=== PATIENT | female | born 2000 | race Caucasian/White ===

== ENCOUNTER 2020-02-24 14:03 | Emergency (ER) | payer OTHER ==
[~2020-02-24] VITALS: Ht 157.5 cm; Wt 55.4 kg
[2020-02-24 14:09] VITALS: BP 124/82
[2020-02-24] MEDS ORDERED: KETOROLAC 15 MG/ML VIAL. IVP ONE (14:30)
[2020-02-24] MEDS ORDERED: DEXAMETHASONE SOD PHOS 10 MG/ML VIAL. IV ONE (14:30)
[2020-02-24] MEDS ORDERED: ONDANSETRON PF 4 MG/2 ML VIAL. IVP ONE (14:30)
[2020-02-24] MEDS ORDERED: IV NORMAL SALINE 1,000ML 1,000 ML IV ONE (14:30)
[2020-02-24] MEDS ORDERED: FAMOTIDINE 20 MG/2 ML VIAL IVP ONE (14:30)
--- NOTE | 2020-02-24 14:47 | PHYS DOC ---
Past History Past Medical History: No Pertinent History Past Surgical History: Other Additional Past Surgical Histo: plate in right arm Alcohol Use: None General Adult EDM: Chief Complaint: ABDOMINAL PAIN HPI: HPI: Patient is a 20 year old female who presents with CC right sided throbbing pain. Pt has been having right sided abdominal pain for the past six months which escalated in severity over the past four days. Pain located anteriorinferior to 12th rib with radiation inferiormedially. Pain initially was only associated with eating but is now constant. Pain is most severe after eating a meal and pt has not been able to eat much the past few days. Associated symptom of nausea but no vomiting. Pt denies any change in urination or change in bowel color/melena. Pt has seen GI at [facility] and they suspect crohn's per pt. colonoscopy scheduled for 03/06/2020 Review of Systems: Review of Systems: Constitutional: Denies fever or chills Eyes: Denies redness or eye pain HENT: Denies nasal congestion or sore throat Respiratory: Denies cough or shortness of breath Cardiovascular: Denies chest pain or palpitations GI: Admits to abdominal pain, nausea, denies vomiting : Denies dysuria or hematuria Musculoskeletal: Denies back pain or joint pain Integument: Denies rash or skin lesions Neurologic: Denies headache, focal weakness or sensory changes Complete systems were reviewed and found to be within normal limits, except as documented in this note. Physical Exam: PE: Constitutional: Well developed, well nourished, no acute distress, non-toxic appearance HENT: Normocephalic, atraumatic Eyes: PERRL, EOMI, conjunctiva normal, no discharge Neck: Normal range of motion, no tenderness, supple Lungs & Thorax: No respiratory distress, equal chest rise and fall Abdomen: Soft, no tenderness on palpation, negative Psoas test, loyds punch, Meza sign Skin: Warm, dry, no erythema, no rash Back: No tenderness, no CVA tenderness Extremities: No tenderness, ROM intact, no edema Neurologic: Alert and oriented X 3, normal motor function, normal sensory function, no focal deficits noted Psychologic: Anxious, judgment normal Current Patient Data: Vital Signs: Vital Signs Date Time Temp Pulse Resp B/P (MAP) Pulse Ox O2 Delivery O2 Flow Rate FiO2 02/24/20 14:09 97.9 67 16 124/82 (96) 98 Room Air EKG: EKG: [] Radiology/Procedures: Radiology/Procedures: [] Course & Med Decision Making: Course & Med Decision Making Pt presented to ED with right sided abdominal pain that has escalated in severity over the past four days. Pt has colonoscopy scheduled for 03/06/[address] [facility] for crohn's workup. Pt has taken demicyclone in the past which has helped. Dexamethsone for inflammation and will discuss pain options. Zofran/PPI. Will follow CBC/UA/B-HCG Kelsea Disclaimer: Kelsea Disclaimer: This electronic medical record was generated, in whole or in part, using a voice recognition dictation system. Departure Departure: Impression: Primary Impression: Chronic abdominal pain Disposition: DC HOME SELF CARE/HOMELESS Condition: STABLE Referrals: PCPTANISHA (PCP) JANENE PEÑALOZA MD Patient Instructions: Abdominal Pain (Nonspecific), Crohn's Disease, Irritable Bowel Syndrome, Ulcerative Colitis Additional Instructions: Please follow up with your family physician and/or GI specialist. Scripts Prednisone (PREDNISONE) 20 Mg Tablet 2 TAB PO DAILY for Inflammation, #8 TAB Start this medication tomorrow, Monday02/25/20 Prov: ALDO WILLOUGHBY DO 02/24/20 Ondansetron (ONDANSETRON ODT) 4 Mg Tab.rapdis 1 TAB PO PRN Q6-8HRS PRN for NAUSEA, #16 TAB Prov: ALDO WILLOUGHBY DO 02/24/20 Famotidine (PEPCID) 20 Mg Tablet 1 TAB PO BID for Gastritis, #14 TAB Prov: ALDO WILLOUGHBY DO 02/24/20 Hyoscyamine Sulfate (LEVSIN-SL) 0.125 Mg Tab.subl 0.125 MG SL Q4-6HRS PRN for PAIN, #14 TAB Prov: ALDO WILLOUGHBY DO 02/24/20 ALDO WILLOUGHBY DO Feb 24, 2020 14:47
[2020-02-24 14:54] LABS: BASO # 0.1 x10^3/uL (0.0-0.2); BASO % 1 % (0-3); EOS % 1 % (0-3); HEMATOCRIT 38.2 % (36.0-47.0); HEMOGLOBIN 13.1 g/dL (12.0-15.5); LYMPH % 27 % (24-48); MEAN CORPUSCULAR HEMOGLOBIN 30 pg (25-35); MEAN CORPUSCULAR HGB CONC 34 g/dL (31-37); MEAN CORPUSCULAR VOLUME 87 fL (79-100); MONO # 0.7 x10^3/uL (0.0-1.1); MONO % 10 % (0-9); NEUT # 4.6 x10^3uL (1.8-7.7); NEUT % 61 % (31-73); PLATELET COUNT 351 x10^3/uL (140-400); RED BLOOD COUNT 4.41 x10^6/uL (3.50-5.40); RED CELL DISTRIBUTION WIDTH 13.3 % (11.5-14.5); WHITE BLOOD COUNT 7.4 x10^3/uL (4.0-11.0)
[2020-02-24 15:02] LABS: CALCIUM 9.5 mg/dL (8.5-10.1); CREATININE 0.6 mg/dL (0.6-1.0); GFR 126.2; POTASSIUM 3.4 mmol/L (3.5-5.1)
[2020-02-24 15:08] LABS: ALBUMIN/GLOBULIN RATIO 1.1 (1.0-1.7); TOTAL BILIRUBIN 0.4 mg/dL (0.2-1.0); TOTAL PROTEIN 7.7 g/dL (6.4-8.2)
[2020-02-24 15:23] LABS: BARBITURATES NEG (NEG); BENZODIAZEPINES NEG (NEG); CANNABINOIDS NEG (NEG); COCAINE NEG (NEG); METHADONE NEG (NEG); OPIATES NEG (NEG); PHENCYCLIDINE NEG (NEG)
[2020-02-24 15:33] LABS: BACTERIA,URINE FEW /HPF (0-FEW); BILIRUBIN,URINE NEG (NEG); CLARITY,URINE CLEAR; COLOR,URINE YELLOW; GLUCOSE,URINE NEG (NEG); NITRITE,URINE NEG (NEG); SQUAMOUS EPITHELIAL CELL,UR MANY /LPF; UROBILINOGEN,URINE 0.2 mg/dL (0.2 mg/dL)
[2020-02-24 15:36] LABS: AMPHETAMINE/METHAMPHETAMINE NEG (NEG)
[2020-02-24] MEDS ORDERED: HYOS0.1265 SL (16:56)
[2020-02-24] MEDS ORDERED: ONDA4TAB12 PO (16:56)
[2020-02-24] MEDS ORDERED: PRED20TA PO (16:56)
[2020-02-24] MEDS ORDERED: FAMO-63 PO (16:56)
== END 2020-02-24 17:06 | disposition home or self-care (01) ==
LOC: ER 14:03
DX: G89.29 Other chronic pain (principal); R10.9 Unspecified abdominal pain
CPT/HCPCS: 36415; 80053; 80307; 81001; 81025; 83605; 83690; 83735; 85025; 87086; 96361; 96374; 96375; 99284; J1100; J1885; J2405; J3490; J7030

== ENCOUNTER 2020-07-03 17:27 | Emergency (ER) | payer OTHER ==
[~2020-07-03] VITALS: Ht 157.5 cm; Wt 56.3 kg
[~2020-07-03 17:27] MED LIST: FAMO-63 PO; HYOS0.1265 SL; ONDA4TAB12 PO; PRED20TA PO
--- NOTE | 2020-07-03 18:24 | PHYS DOC ---
Past History Past Medical History: No Pertinent History Past Surgical History: No Surgical History Additional Past Surgical Histo: plate in right arm Smoking: Non-smoker Alcohol Use: None General Adult EDM: Chief Complaint: ABDOMINAL PAIN HPI: HPI: " --".. I ve been hurting really bad in my lt. mid and lower abd... It been constant since 2100 hrs... 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 mid and lower abdomen pain. Patient reports normal stools today. Patient denies any trauma. No history of bad food intake. No history immunosuppression. No recent travel outside of [facility]. Is up-to-date with vaccinations. Patient denies any history of kidney stones. Patient denies any history of ovarian cyst. Patient denies any history of bowel obstructions or diverticulitis. No history of inflammatory bowel disease with her family members. Patient denies any vaginal discharge or concerns for STD. Has had a history of a previous UTI. Patient reportedly normally healthy. Patient normally follows at [facility]. Patient states he has had no abdomen surgeries. No pregnancies. Recent travel from [place] for classes here at [employer]. Review of Systems: Review of Systems: Constitutional: Denies fever or chills Eyes: Denies change in visual acuity HENT: Denies nasal congestion or sore throat Respiratory: Denies cough or shortness of breath Cardiovascular: Denies chest pain or edema GI: Complains of severe left mid and lower abdominal pain, nausea,. No vomitin g, bloody stools or diarrhea : Denies dysuria Musculoskeletal: Denies back pain or joint pain Integument: Denies rash Neurologic: Denies headache, focal weakness or sensory changes Endocrine: Denies polyuria or polydipsia Lymphatic: Denies swollen glands Psychiatric: Denies depression or anxiety Family History: Family History: Family history noncontributory Current Medications: Current Meds: See nursing for home meds Allergies: Allergies: Allergies Coded Allergies Type Severity Reaction Last Updated Verified No Known Drug Allergies 02/24/20 No Physical Exam: PE: Constitutional: Well developed, well nourished, and acute distress, non-toxic appearance. [] HENT: Normocephalic, atraumatic, bilateral external ears normal, oropharynx moist, no oral exudates, nose normal. [] Eyes: PERRLA, EOMI, conjunctiva normal, no discharge. [] Neck: Normal range of motion, no tenderness, supple, no stridor. [] Cardiovascular:Heart rate regular rhythm, no murmur [] Lungs & Thorax: Bilateral breath sounds equal apex with scattered wheezes on auscultation [] Abdomen: Bowel sounds normal, soft, left mid and lower abdomen tenderness, no masses, no pulsatile masses. Rebound to the left mid and lower abdomen. Pelvic exam deferred at this time. Pt. denies pelvic discharge or dysuria. Skin: Warm, dry, no erythema, no rash. [] Back: No tenderness, no CVA tenderness. [] Extremities: No tenderness, no cyanosis, no clubbing, ROM intact, no edema. No psoas sign. Neurologic: Alert and oriented X 3, normal motor function, normal sensory function, no focal deficits noted. [] Psychologic: Affect anxious, judgement normal, mood normal. [] Current Patient Data: Labs: Laboratory Tests Test 07/03/20 17:43 POC Urine HCG, Qualitative hcg negative (Negative) Vital Signs: Vital Signs Date Time Temp Pulse Resp B/P (MAP) Pulse Ox O2 Delivery O2 Flow Rate FiO2 07/03/20 17:53 97.8 84 16 119/71 (87) 97 Room Air EKG: EKG: [] Radiology/Procedures: Radiology/Procedures: [][place] [address] IMAGING REPORT Signed PATIENT: PRETTY HERNANDEZ MACCOUNT: [id number] : 2000 LOCATION: ER AGE: 20 SEX: F EXAM STATUS: REG ER ORD. PHYSICIAN: OUSMANE RICHARDSON MD REASON: pain PROCEDURE: CT ABD PELV W/ORAL&IV CONTRAST Study: CT abdomen/pelvis with intravenous contrast Indication: Abdominal pain. Comparison: None. Technique: Helical CT imaging performed of the abdomen and pelvis after the intravenous administration of 75 cc contrast. Sagittal and coronal reformats were obtained. One or more of the following individualized dose reduction techniques were utilized for this examination: 1. Automated exposure control 2. Adjustment of the mA and/or kV according to patient size 3. Use of iterative reconstruction technique. Findings: Heterogeneous attenuation of the uterus. Cystic structures at both adnexa are somewhat tubular possibly relating to distended fallopian tubes and more noticeable on the left. No overt surrounding inflammatory changes and there appears to be a trace amount of fluid within the pelvic cul-de-sac. Unremarkable liver, gallbladder, pancreas, spleen and adrenal glands. Small left renal cystic focus. No stone or collecting system dilatation. Urinary bladder wall thickness is within the broad range of normal. Mild bladder distention. Mild/moderate degree of constipation. Normal appendix. Fecalization of enteric material typical of slow transit. No pathologic small bowel dilatation with a loop of small bowel at the central upper abdomen measuring under 3 cm AP. Unremarkable stomach. No major vascular abnormality. No lymphadenopathy or pneumoperitoneum. No acute osseous abnormality. Unremarkable visualized lungs and mediastinal contents. Impression: Cystic foci at the left more so than right adnexa with a tubular configuration suggesting this may be related to fluid distention of the fallopian tubes. Trace free pelvic fluid. The uterine parenchyma is heterogeneous. Correlate for any clinical findings that would suggest pelvic inflammatory disease with associated pyosalpinx as the cause of the patient's reported pain. Ultrasound could be performed to further characterize. Electronically signed by: SUMAYA RAMIREZ MD (07/03/2020 9:06 PM) [facility] DICTATED AND SIGNED BY: SUMAYA RAMIREZ MD DATE: 07/03/202057 CC: OUSMANE RICHARDSON MD; PCP,NO ~MTH0 [address] [place] [address] IMAGING REPORT Signed PATIENT: PRETTY HERNANDEZ MACCOUNT: [id number] : 2000 LOCATION: ER AGE: 20 SEX: F EXAM STATUS: REG ER ORD. PHYSICIAN: OUSMANE RICHARDSON MD REASON: pain PROCEDURE: ACUTE ABDOMEN SERIES EXAMINATION: XR ABDOMEN COMP ACUTE CLINICAL HISTORY: Pain EXAM DATE/TIME: 07/03/2020 6:52 PM COMPARISON: None FINDINGS: Lines, Tubes, and Devices: None. Cardiomediastinal Silhouette: Within normal limits. Lungs and Pleura: No evidence of focal airspace consolidation, pleural effusion, or pneumothorax. Bones and Soft Tissues: No acute osseous abnormality. Abdomen: Nonobstructive bowel gas pattern. No evidence of pneumoperitoneum. Pelvic phleboliths. IMPRESSION: Nonobstructive bowel gas pattern. No evidence of acute cardiopulmonary abnormality. Electronically signed by: Joseph Clarke DO (07/03/2020 8:18 PM) [facility] DICTATED AND SIGNED BY: JOSEPH CLARKE DO DATE: 07/03/202015 CC: OUSMANE RICHARDSON MD; PCP,NO ~MTH0 0 Heart Score: C/O Chest Pain: N/A Risk Factors: Risk Factors: DM, Current or recent (<one month) smoker, HTN, HLP, family history of CAD, obesity. Risk Scores: Score 0 - 3: 2.5% MACE over next 6 weeks - Discharge Home Score 4 - 6: 20.3% MACE over next 6 weeks - Admit for Clinical Observation Score 7 - 10: 72.7% MACE over next 6 weeks - Early Invasive Strategies Course & Med Decision Making: Course & Med Decision Making Pertinent Labs and Imaging studies reviewed. (See chart for details) Patient practice safe sex. Obtain outpatient ultrasound study to evaluate ovarian area on the left. Patient take doxycycline 100 mg twice a day for the next 14 days. Follow-up pending cultures. A primary care review ED record and work-up. Return if any concerns. Clear fluid diet for the next 48 hours. Impression: 1. Abdomen Pain 2. Left adnexal area appears to have increased inflammation. Consistent with PID. 3. Mild hypokalemia 3.4 [] Dragon Disclaimer: Dragon Disclaimer: This electronic medical record was generated, in whole or in part, using a voice recognition dictation system. Departure Departure: Referrals: PCP,NO (PCP) Scripts Doxycycline Hyclate (DOXYCYCLINE HYCLATE) 100 Mg Tablet. 100 MG PO BID for PID for 14 Days, #28 TAB Prov: OUSMANE RICHARDSON MD 07/03/20 Kelsea Disclaimer This chart was dictated in whole or in part using Voice Recognition software in a busy, high-work load, and often noisy Emergency Department environment. It may contain unintended and wholly unrecognized errors or omissions. OUSMANE RICHARDSON MD July 03, 2020 18:24
[2020-07-03 18:31] LABS: BILIRUBIN,URINE NEG (NEG); CLARITY,URINE CLEAR; COLOR,URINE STRAW; GLUCOSE,URINE NEG (NEG); NITRITE,URINE NEG (NEG); UROBILINOGEN,URINE 0.2 mg/dL (0.2 mg/dL)
[2020-07-03 18:38] LABS: BACTERIA,URINE FEW /HPF (0-FEW); RBC,URINE RARE /HPF (0-2); SQUAMOUS EPITHELIAL CELL,UR MANY /LPF
[2020-07-03] MEDS: IV RINGERS SOLUTION,LACTATED 1,000 ML IV SCH (19:10)
[2020-07-03] MEDS: KETOROLAC 30 MG/ML VIAL. IVP ONE (19:11)
[2020-07-03] MEDS: ONDANSETRON PF 4 MG/2 ML VIAL. IVP ONE (19:11)
[2020-07-03] MEDS: FAMOTIDINE 20 MG/2 ML VIAL IVP ONE (19:11)
[2020-07-03] MEDS ORDERED: IOHEXOL 240 MG/ML 50ML VIAL. ONE (19:16)
[2020-07-03 19:32] LABS: BASO # 0.1 x10^3/uL (0.0-0.2); BASO % 1 % (0-3); EOS # 0.1 x10^3/uL (0.0-0.7); EOS % 1 % (0-3); HEMATOCRIT 39.3 % (36.0-47.0); HEMOGLOBIN 13.5 g/dL (12.0-15.5); LYMPH % 29 % (24-48); MEAN CORPUSCULAR HEMOGLOBIN 30 pg (25-35); MEAN CORPUSCULAR HGB CONC 34 g/dL (31-37); MEAN CORPUSCULAR VOLUME 87 fL (79-100); MONO # 0.9 x10^3/uL (0.0-1.1); MONO % 9 % (0-9); NEUT # 6.2 x10^3uL (1.8-7.7); NEUT % 61 % (31-73); PLATELET COUNT 346 x10^3/uL (140-400); RED BLOOD COUNT 4.51 x10^6/uL (3.50-5.40); RED CELL DISTRIBUTION WIDTH 13.2 % (11.5-14.5); WHITE BLOOD COUNT 10.2 x10^3/uL (4.0-11.0)
[2020-07-03 19:38] LABS: CALCIUM 9.3 mg/dL (8.5-10.1); CREATININE 0.6 mg/dL (0.6-1.0); GFR 126.2; POTASSIUM 3.4 mmol/L (3.5-5.1)
[2020-07-03 19:45] LABS: ALBUMIN 4.1 g/dL (3.4-5.0); DIRECT BILIRUBIN 0.1 mg/dL (0.0-0.2); TOTAL BILIRUBIN 0.3 mg/dL (0.2-1.0)
[2020-07-03] MEDS ORDERED: cefTRIAXone SODIUM 1 GM VIAL ONE (20:14)
[2020-07-03] MEDS ORDERED: IV NORMAL SALINE 50ML 50 ML ONE (20:14)
--- NOTE | 2020-07-03 20:20 | RAD ---
EXAMINATION: XR ABDOMEN COMP ACUTE CLINICAL HISTORY: Pain EXAM DATE/TIME: 07/03/2020 6:52 PM COMPARISON: None FINDINGS: Lines, Tubes, and Devices: None. Cardiomediastinal Silhouette: Within normal limits. Lungs and Pleura: No evidence of focal airspace consolidation, pleural effusion, or pneumothorax. Bones and Soft Tissues: No acute osseous abnormality. Abdomen: Nonobstructive bowel gas pattern. No evidence of pneumoperitoneum. Pelvic phleboliths. IMPRESSION: Nonobstructive bowel gas pattern. No evidence of acute cardiopulmonary abnormality. Electronically signed by: Joseph Harrison DO (07/03/2020 8:18 PM) [facility]
[2020-07-03] MEDS: IOHEXOL 300 MG/ML 75 ML VIAL. IV ONE (20:54)
--- NOTE | 2020-07-03 21:08 | RAD ---
Study: CT abdomen/pelvis with intravenous contrast Indication: Abdominal pain. Comparison: None. Technique: Helical CT imaging performed of the abdomen and pelvis after the intravenous administratio n of 75 cc contrast. Sagittal and coronal reformats were obtained. One or more of the following individualized dose reduction techniques were utilized for this examinat ion: 1. Automated exposure control 2. Adjustment of the mA and/or kV according to patient size 3. Use of iterative reconstruction technique. Findings: Heterogeneous attenuation of the uterus. Cystic structures at both adnexa are somewhat tubular possib ly relating to distended fallopian tubes and more noticeable on the left. No overt surrounding inflam matory changes and there appears to be a trace amount of fluid within the pelvic cul-de-sac. Unremarkable liver, gallbladder, pancreas, spleen and adrenal glands. Small left renal cystic focus. No stone or collecting system dilatation. Urinary bladder wall thickness is within the broad range of normal. Mild bladder distention. Mild/moderate degree of constipation. Normal appendix. Fecalization of enteric material typical of sl ow transit. No pathologic small bowel dilatation with a loop of small bowel at the central upper abdo men measuring under 3 cm AP. Unremarkable stomach. No major vascular abnormality. No lymphadenopathy or pneumoperitoneum. No acute osseous abnormality. Unremarkable visualized lungs and mediastinal contents. Impression: Cystic foci at the left more so than right adnexa with a tubular configuration suggesting this may be related to fluid distention of the fallopian tubes. Trace free pelvic fluid. The uterine parenchyma is heterogeneous. Correlate for any clinical findings that would suggest pelvic inflammatory disease with associated pyosalpinx as the cause of the patient's reported pain. Ultrasound could be performed to further characterize. Electronically signed by: SUMAYA RAMIREZ MD (07/03/2020 9:06 PM) [facility]
[2020-07-03] MEDS ORDERED: DOXY-96 PO (21:51)
[2020-07-03] MEDS: MAGNESIUM HYDROXIDE 2,400 MG/30 ML ORAL.SUSP. PO ONE (22:02)
[2020-07-03] MEDS: AZITHROMYCIN 250 MG TABLET. PO ONE (22:02)
[2020-07-03 22:41] VITALS: BP 100/60
== END 2020-07-03 22:42 | disposition home or self-care (01) ==
LOC: ER 17:27 → EDBD 17:27 → ER 22:42
DX: N73.8 Other specified female pelvic inflammatory diseases (principal); E87.6 Hypokalemia; R10.32 Left lower quadrant pain
CPT/HCPCS: 36415; 74022; 74177; 80048; 80076; 81001; 81025; 82150; 82550; 83690; 84484; 85025; 85610; 85730; 87086; 87491; 87591; 96361; 96365; 96375; 99285; J0696; J1885; J2405; J3490; J7120; Q9967; 87077; 87186

== ENCOUNTER → 2020-11-12 | Outpatient (CLI) | payer OTHER ==
[~2020-11-12] MED LIST changes: +DOXY-96 PO
--- NOTE | 2020-11-12 15:17 | RAD ---
XR KNEE _3 VIEWS_LT, XR LT TIBIA + FIBULA Clinical indications: Reason: ACUTE PAIN IN LEFT KNEE,HX OF STRESS FX OF LEFT TIBIA 2 YEARS AGO / Spl . Instructions: / History: Left knee: No acute fracture or dislocation or osteolytic process is evident. Left tibia/fibula: No acute fracture or dislocation or lytic process is seen. No periosteal reaction is evident. IMPRESSION: No acute osseous abnormality is evident. Electronically signed by: Nain Crum MD (11/12/2020 3:15 PM) [id number]
== END ==
LOC: RAD 14:48
PROVIDERS: ATTEND Nurse Practitioner Family
DX: M25.562 Pain in left knee (principal); M79.662 Pain in left lower leg
CPT/HCPCS: 73562; 73590